=== PATIENT | male | born 1960 | race Caucasian/White ===

== ENCOUNTER 2018-06-05 01:25 | Inpatient (IN) | payer OTHER ==
[2018-06-05] VITALS (8 sets, daily range): BP systolic 116–156; BP diastolic 49–82
[~2018-06-05] VITALS: Ht 187.9 cm; Wt 120.8 kg
--- NOTE | ~2018-06-05 | EKG ---
[place], [place] ELECTROCARDIOGRAM REPORT NAME: XOCHILT LENNON UNIT #: [id number] ROOM: 516 DOCTOR: KIMBERLY DRAFT REPORT BIRTHDATE: [birth year] [facility] Test Date: 2018-06-05 Test Time: 01:35:32 Pat Name: XOCHILT LENNON Department: 5E Room: 516 Gender: M Principal Research Economist: Ever Elliott : 1960 Requested By: ODALYS ARRIETA Order Number: [id number] Reading MD: Kris Bennett MD Measurements Intervals [place] Rate: 93 P: 43 UT: 139 QRS: 46 QRSD: 99 T: 30 QT: 367 QTc: 457 Interpretive Statements Sinus rhythm Probable left atrial enlargement Borderline T wave abnormalities Baseline wander in lead(s) V5 Electronically Signed On 06-05-2018 16:29:19 PST by Kris Bennett MD CM:EKGRPT:ELECTROCARDIOGRAM REPORT 0135 1629 ODALYS EPSTEIN DRAFT REPORT ODALYS ARRIETA DO
[2018-06-05 01:47] LABS: BASO % 0.8 % (0.0-1.0); EOS # 0.1 10*3/uL (0.0-0.4); EOS % 1.8 % (1.0-4.0); HEMATOCRIT 32.1 % (42.0-52.0); HEMOGLOBIN 9.5 g/dl (14.0-18.0); LYMPH # 0.6 10*3/uL (1.3-4.4); LYMPH % 16.2 % (27.0-41.0); MEAN CELL VOLUME 84.5 fl (80.0-94.0); MEAN CORPUSCULAR HGB CONC 29.6 g/dl (33.0-37.0); MEAN PLATELET VOLUME 9.4 fl (9.6-12.3); MONO # 0.4 10*3/uL (0.1-1.0); MONO % 11.3 % (3.0-9.0); NEUT # 2.7 10*3/uL (2.3-7.9); NEUT % 69.1 % (47.0-73.0); PLATELET COUNT AUTOMATED 124 10*3/uL (130-400); RED CELL DISTRI WIDTH 19.1 % (0-14.5); WHITE BLOOD COUNT 3.9 10*3/uL (4.8-10.8)
[2018-06-05 02:18] LABS: TROPONIN I 0.148 ng/ml (<0.045)
[2018-06-05 02:57] LABS: ALBUMIN 3.1 gm/dl (3.1-4.5); ALKALINE PHOSPHATASE 133 U/L (45-117); BUN 6 mg/dl (7-24); CHLORIDE 107 mmol/L (98-107); CREATININE 0.96 mg/dL (0.70-1.30); SGOT/AST 81 IU/L (3-35); SGPT/ALT 41 U/L (12-78); SODIUM 141 mmol/L (136-145); TOTAL PROTEIN 8.8 gm/dL (6.4-8.2)
[2018-06-05 05:37] LABS: FREE T4 1.16 ng/dl (0.76-1.46)
[2018-06-05 05:43] LABS: THYROID STIM HORMONE (HS) 1.11 uIU/ml (0.358-4.75)
[2018-06-05 07:27] LABS: VITAMIN D, 25-HYDROXY 15.3 ng/mL (30-100)
[2018-06-05 08:03] LABS: URINE AMPHETAMINES < 1000 (1000ng/ml); URINE BARBITURATES < 200 (200ng/ml); URINE BENZODIAZEPINES < 200 (200ng/ml); URINE CANNABINOIDS (THC) > 50 (50ng/ml); URINE COCAINE < 300 (300ng/ml); URINE METHADONE < 300 (300ng/ml); URINE OPIATES < 300 (300ng/ml)
[2018-06-05 08:05] LABS: URINE PHENCYCLIDINE < 25 (25ng/ml)
== END 2018-06-05 18:59 | disposition home or self-care (01) | DRG 313 ==
LOC: ED 01:25 → EDHOLD 03:22 → 5E 03:22
PROVIDERS: Emergency Medicine; Internal Medicine; ADMIT Internal Medicine
DX: R07.9 Chest pain, unspecified (principal); R74.8 Abnormal levels of other serum enzymes; F17.210 Nicotine dependence, cigarettes, uncomplicated; S09.90XA Unspecified injury of head, initial encounter; S16.1XXA Strain of muscle, fascia and tendon at neck level, initial encounter; E66.9 Obesity, unspecified; D64.9 Anemia, unspecified; D69.6 Thrombocytopenia, unspecified; D72.810 Lymphocytopenia; R73.9 Hyperglycemia, unspecified; V89.2XXA Person injured in unspecified motor-vehicle accident, traffic, initial encounter; Y93.89 Activity, other specified; Y92.89 Other specified places as the place of occurrence of the external cause; Y99.8 Other external cause status; Z68.34 Body mass index [BMI] 34.0-34.9, adult

== ENCOUNTER 2018-07-01 22:40 | Inpatient (IN) | payer OTHER ==
--- NOTE | ~2018-07-01 | PR ---
[place], [place] PROGRESS NOTE NAME: XOCHILT LENNON UNIT #: [id number] ROOM: 528 DOCTOR: JANESSA HAMMOND MD BIRTHDATE: [birth year] DOS: 07/04/2018 CARDIOLOGY FOLLOWUP NOTE REASON FOR VISIT: Elevated troponin. SUBJECTIVE: The patient is feeling better. Denies any chest pain or shortness of breath. No palpitation, no dizziness, no orthopnea. No nausea or vomiting. No fever and chills. REVIEW OF SYSTEMS: Review of the 10 system negative except as mentioned above. PHYSICAL EXAMINATION: VITAL SIGNS: Blood pressure 109/50, pulse 70, respiration rate 17, weight 117 kilos, BMI 33. RHYTHM STRIPS: Patient in sinus rhythm. GENERAL: Comfort no acute distress. HEAD AND NECK: Neck supple, no distended neck veins, no audible carotid bruit. Tongue was moist and pharynx clear. CHEST: Symmetrical, nontender. LUNGS: Clear to auscultation bilaterally. HEART: Regular rhythm, no S3. Grade 1/6 systolic murmur. ABDOMEN: Benign, nontender. Bowel sounds normal. EXTREMITIES: Showed trace edema. Distal pulses palpable. SKIN: Warm and dry. No cyanosis, no clubbing. RECTAL: Deferred. NEUROLOGIC: Deferred. PSYCHIATRIC: The patient is alert, oriented with good mood and affect. MEDICATIONS, ALLERGIES, AND LABORATORIES: Reviewed. IMPRESSION: 1. Borderline elevation of troponin due to demand ischemia from severe anemia. 2. Severe anemia due to upper gastrointestinal bleed. 3. Upper gastrointestinal bleed. 4. Tobacco abuse. 5. Non-morbid obesity. 6. Peptic ulcer disease. RECOMMENDATIONS: 1. Blood pressure and heart rate are stable. 2. Continue current medications. 3. The patient is anticipating upper endoscopy earlier part of next week and treatment of his esophageal varices. He will need Lexiscan stress test prior to discharge. 4. His 2D echo was unremarkable. 5. No family at bedside at the time of examination. [place], [place] PROGRESS NOTE NAME: XOCHILT LENNON UNIT #: [id number] ROOM: 528 DOCTOR: JANESSA HAMMOND MD BIRTHDATE: [birth year] JANESSA HAMMOND MD CM:ERIS 55 [id number] JANESSA HAMMOND MD 08/18/18 0808 interface
--- NOTE | ~2018-07-01 | PR ---
[place], [place] PROGRESS NOTE NAME: XOCHILT LENNON UNIT #: [id number] ROOM: 528 DOCTOR: STEPHANY WARNER,JANESSA BIRTHDATE: [birth year] DOS: 07/06/2018 CARDIOLOGY PROGRESS NOTE REASON FOR VISIT: Elevated troponin. SUBJECTIVE: The patient is feeling better. Denies any chest pain or shortness of breath. No palpitations, no dizziness. No hemoptysis. He is anticipating to go for an upper endoscopy today. No PND, no orthopnea, no palpitations. REVIEW OF SYSTEMS: Review of the 10 systems negative except as mentioned above. PHYSICAL EXAMINATION: VITAL SIGNS: Blood pressure 130/46, pulse 85, respiratory rate 20. Weight 117 kilos, BMI 33. RHYTHM STRIPS: The patient is in sinus rhythm. GENERAL: Alert, comfortable, in no acute distress. HEAD AND NECK: Pupils are round and equal. No jaundice. Tongue was moist. Pharynx clear. Neck is supple, no distended neck veins, no carotid bruit. CHEST: Symmetrical, nontender. LUNGS: Clear to auscultation bilaterally. HEART: Regular rhythm, no S3, no palpable thrills. ABDOMEN: Benign, nontender. Bowel sounds normal. EXTREMITIES: Showed trace edema. Distal pulses palpable. SKIN: Warm and dry. No cyanosis, no clubbing. RECTAL: Deferred. GENITOURINARY: Deferred. NEUROLOGIC: The patient is alert, oriented with good mood and affect. MEDICATIONS AND LABS: Reviewed. IMPRESSION: 1. Borderline elevation of troponin due to severe anemia with demand ischemia. 2. Severe anemia due to acute gastrointestinal bleed. 3. Peptic ulcer disease. 4. Mild hypokalemia. 5. Non-morbid obesity. 6. Tobacco use. RECOMMENDATIONS: 1. Continue current medication. 2. We will supplement his potassium after the upper endoscopy and we will give 40 mEq of potassium chloride. 3. Monitor the heart rate, blood pressure, and hemoglobin. 4. The patient counseled to quit smoking. 5. After his upper endoscopy and his hemoglobin stable, he will need a Lexiscan stress test prior to discharge. 6. Risk factor modification to quit smoking and also for diet, exercise, weight loss as tolerated was discussed. 7. No family at bedside at the time of examination. [place], [place] PROGRESS NOTE NAME: XOCHILT LENNON UNIT #: [id number] ROOM: 528 DOCTOR: JANESSA HAMMOND MD BIRTHDATE: [birth year] JANESSA HAMMOND MD CM:PNJACOB [id number] JANESSA HAMMOND MD 07/07/18 1500 interface
--- NOTE | ~2018-07-01 | O ---
[place], [place] OPERATIVE NOTE NAME: XOCHILT LENNON UNIT #: [id number] ROOM: 528 DOCTOR: MARII GASCA MD BIRTHDATE: [birth year] DOS: 07/06/2018 GASTROENDOSCOPIC REPORT INDICATIONS: The patient has presented with a cirrhotic liver, esophageal varicosity, portal hypertension, anemia, GI bleed, undergoing investigation and therapeutics. PROCEDURE: Today's procedure part of investigation and therapy is panendoscopy plus esophageal varicosity band ligation. PREMEDICATION: Propofol. SCOPE: Olympus forward-viewing gastroscope Q10 video. REPORT: After putting the patient in left lateral position and application of lubricant to the scope, the scope was introduced. Thereafter, under direct visualization, advanced through the length of esophagus without difficulty. Esophagus, cervical, thoracic distally carefully examined and 2-3+ esophageal band of varicosity was noticed at 12 o'clock, 2 cm above the esophagogastric junction. This was targeted and ligated triple bands. Gastric pouch was entered. Gastritis seen. Duodenal bulb, second and third part within normal limit. The patient extubated, tolerated procedure well. Photographic series obtained. IMPRESSION: Esophageal varicosities status post triple band ligation at 1 site. PLAN AND DISCUSSION: Ice cold liquid diet today, soft tomorrow, and advancement, supportive management. Thank you very much indeed for your kind referral. MARII GASCA MD CM:OPRECORD:OPERATIVE NOTE 1324 1410 MARII GASCA MD 07/06/18 1411 interface
--- NOTE | ~2018-07-01 | EKG ---
[place], [place] ELECTROCARDIOGRAM REPORT NAME: XOCHILT LENNON UNIT #: [id number] ROOM: [facility] DOCTOR: KIMBERLY DRAFT REPORT BIRTHDATE: [birth year] [facility] Test Date: 2018-07-02 Test Time: 02:40:37 Pat Name: XOCHILT LENNON Department: Room: [facility] Gender: M Research Scholar: 51 : 1960 Requested By: TANK LIMON Order Number: [id number] Reading MD: Kris Bennett MD Measurements Intervals [place] Rate: 111 P: 30 OR: 125 QRS: 41 QRSD: 90 T: QT: 337 QTc: 458 Interpretive Statements Sinus tachycardia Repol abnrm, severe global ischemia (LM/MVD) Compared to earlier ECG this date No significant change Electronically Signed On 07-02-2018 18:14:12 PST by Kris Bennett MD CM:EKGRPT:ELECTROCARDIOGRAM REPORT 0240 1814 TANK LIMON MD EPIPHANY DRAFT REPORT TANK LIMON MD
--- NOTE | ~2018-07-01 | EKG ---
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
--- NOTE | ~2018-07-01 | EKG ---
[place], [place] ELECTROCARDIOGRAM REPORT NAME: XOCHILT LENNON UNIT #: [id number] ROOM: [facility] DOCTOR: KIMBERLY DRAFT REPORT BIRTHDATE: [birth year] [facility] Test Date: 2018-07-02 Test Time: 00:19:49 Pat Name: XOCHILT LENNON Department: Room: 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
--- NOTE | ~2018-07-01 | O ---
[place], [place] OPERATIVE NOTE NAME: XOCHILT LENNON UNIT #: [id number] ROOM: 528 DOCTOR: MARII GASCA MD BIRTHDATE: [birth year] DOS: 07/03/2018 INDICATION FOR PROCEDURE: A 57-year-old patient who presented with chief complaint of GI bleed. The patient has presented with hemoglobin of 4, status post multipack cell transfusion observation in ICU. PROCEDURE: Today's procedure part of investigation is panendoscopy. PREMEDICATION: Propofol. SCOPE: Olympus forward-viewing gastroscope Q10 video. REPORT: After putting the patient in left lateral position and application of lubricant to the scope, the scope was introduced. Therefore, under direct visualization, advanced through the length of esophagus without difficulty. A 2-3+ esophageal varicosities isolated were noticed. Gastric pouch was entered. Gastritis seen. Multiple small antral ulceration secondary to nonsteroidal anti-inflammatory was noticed. Duodenal bulb, second and third part within normal limits. The patient was gradually extubated after antral biopsy. The patient tolerated the procedure well. IMPRESSION: Esophageal varicosities gastritis, multi small antral ulcers. PLAN AND DISCUSSION: The patient requires to be under detox at least to be away from alcohol to remove the effect of the alcohol and nonsteroidal anti-inflammatory and also in the near future to have EGD, esophageal banding done. Meanwhile, he needs to be on PPI therapy as well as Inderal therapy at least started at 10 mg b.i.d. and if his blood pressure systemically agrees, to increase it to 20 mg b.i.d. or nadolol C[place]ard as a substitute. We will make arrangements for future esophageal band ligation once the issues on hand has been addressed in the next few days. MARII GASCA MD CM:OPRECORD:OPERATIVE NOTE 1522 1612 MARII GASCA MD 07/09/18 0811 interface
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
--- NOTE | ~2018-07-01 | EKG ---
[place], [place] ELECTROCARDIOGRAM REPORT NAME: XOCHILT LENNON UNIT #: [id number] ROOM: [facility] DOCTOR: KIMBERLY DRAFT REPORT BIRTHDATE: [birth year] [facility] Test Date: 2018-07-01 Test Time: 22:52:28 Pat Name: XOCHILT LENNON Department: Room: [facility] Gender: M Hospital Nurse: 51 : 1960 Requested By: TANK LIMON Order Number: [id number] Reading MD: Kris Bennett MD Measurements Intervals [place] Rate: 116 P: 21 [place]: 116 QRS: 46 QRSD: 86 T: 138 QT: 346 QTc: 481 Interpretive Statements Sinus tachycardia Repol abnrm, severe global ischemia (LM/MVD) Compared to ECG 06/05/2018 01:35:[address] depression consistent with ischemia now present Sinus rhythm no longer present T-wave abnormality no longer present Electronically Signed On 07-02-2018 3:59:10 PST by Kris Bennett MD CM:EKGRPT:ELECTROCARDIOGRAM REPORT [id number] 0359 TANK HARRIS DRAFT REPORT TANK LIMON MD
[2018-07-01 22:45] VITALS: BP 96/44
--- NOTE | 2018-07-01 23:00 | NUR ---
VERBAL CONSENT GIVEN FOR BLOOD TRANSFUSION TO DR. GIBSON. THIS RN WITNESSED.
[2018-07-01 23:19] LABS: MEAN CELL VOLUME 85.3 fl (80.0-94.0); MEAN CORPUSCULAR HGB 23.9 pg (27.0-31.0); MEAN PLATELET VOLUME 10.9 fl (9.6-12.3); NUCLEATED RED BLOOD CELL 0.1 10*3/uL (0.0-0.0); NUCLEATED RED BLOOD CELL 0.3 % (0.0-0.0); PLATELET COUNT AUTOMATED 204 10*3/uL (130-400); RED BLOOD COUNT 1.84 10*6/uL (4.50-5.90); RED CELL DISTRI WIDTH 22.7 % (0-14.5); WHITE BLOOD COUNT 16.6 10*3/uL (4.8-10.8)
[2018-07-01 23:26] LABS: HEMOGLOBIN 4.4 g/dl (14.0-18.0)
[2018-07-01 23:28] LABS: HEMATOCRIT 15.7 % (42.0-52.0)
--- NOTE | 2018-07-01 23:29 | NUR ---
TOOK REPORT FROM LAB WITH CRITICAL H&H 4.4.7. NOTIFIED DR. GIBSON, AND ANAY RANDLE
[2018-07-01 23:34] LABS: ACT PARTIAL THROMBO TIME 25.1 SECONDS (20.8-31.5); INTERNATIONAL NORM RATIO 1.8 (2.0-3.5)
[2018-07-01 23:37] VITALS: BP 116/40
[2018-07-01 23:39] LABS: BASOPHILS 1 % (0-1); PLATELET SUFFICIENCY NORMAL (NORMAL); POLYCHROMASIA MODERATE; TOTAL CELLS COUNTED 100 #CELLS
[2018-07-01 23:51] LABS: ALBUMIN 2.3 gm/dl (3.1-4.5); CREATININE 1.74 mg/dL (0.70-1.30); POTASSIUM 4.8 mmol/L (3.5-5.1); TOTAL PROTEIN 6.3 gm/dL (6.4-8.2)
[2018-07-01 23:53] LABS: TROPONIN I 0.91 ng/ml (<0.045)
[2018-07-02] VITALS (33 sets, daily range): BP systolic 104–124; BP diastolic 40–60
--- NOTE | 2018-07-02 01:00 | NUR ---
DR. ACKERMAN ANSWERING SERVICE NOTIFIED. DR. GASCA WAS NOTIFIED IN ER BY DR. JIMENEZ.
--- NOTE | 2018-07-02 01:10 | NUR ---
A 57, admitted to ICCU, under the services of KELSEY Cao MD with a diagnosis of AC UPPER GI BLEED. Chief complaint is VOMITING BLOOD, BLOODY STOOLS, AND CHEST PRESSURE. Patient arrived via stretcher from ER. Monitor applied. Initial assessment completed. Vital signs taken and recorded. KELSEY CAO MD notified of admission to the unit. Orders received. See assessment for past medical history, medications and allergies. Patient and/or family oriented to unit. [facility]U visitation policy reviewed. Clothing/patient valuable form completed. JAJA GOFF
[2018-07-02 05:22] LABS: ALBUMIN 2.1 gm/dl (3.1-4.5); BUN 44 mg/dl (7-24); CHLORIDE 105 mmol/L (98-107); POTASSIUM 4.2 mmol/L (3.5-5.1); SODIUM 140 mmol/L (136-145)
[2018-07-02 05:30] LABS: ALKALINE PHOSPHATASE 108 U/L (45-117); CHOLESTEROL 55 mg/dL (<200); CREATININE 1.29 mg/dL (0.70-1.30); FREE T4 1.04 ng/dl (0.76-1.46); HDL CHOLESTEROL 22 mg/dl (40-60); LDL CHOLESTEROL 17 mg/dL (9-159); PHOSPHOROUS 4.2 mg/dL (2.5-4.9); SGOT/AST 52 IU/L (3-35); SGPT/ALT 33 U/L (12-78); THYROID STIM HORMONE (HS) 0.597 uIU/ml (0.358-4.75); TOTAL PROTEIN 5.7 gm/dL (6.4-8.2); TRIGLYCERIDES 79 mg/dl (<150); VLDL CHOLESTEROL 16 mg/dL (6-40)
--- NOTE | 2018-07-02 06:54 | NUR ---
DR. ACKERMAN AWARE OF CONSULT NO NEW ORDERS.
[2018-07-02] MEDS ORDERED: Motrin,Rufen400 MG PO (07:09)
[2018-07-02 07:42] LABS: VITAMIN D, 25-HYDROXY 15.9 ng/mL (30-100)
--- NOTE | 2018-07-02 08:25 | NUR ---
DR ACKERMAN IN WITH PATIENT AT THIS TIME
--- NOTE | 2018-07-02 08:45 | NUR ---
SHIFT CHART CHECK COMPLETED. 24HR CHART CHECK COMPLETED AT THIS TIME.
[2018-07-02 08:58] LABS: HEMATOCRIT 19.6 % (42.0-52.0); MEAN CELL VOLUME 84.8 fl (80.0-94.0); MEAN CORPUSCULAR HGB CONC 30.6 g/dl (33.0-37.0); MEAN PLATELET VOLUME 11.1 fl (9.6-12.3); NUCLEATED RED BLOOD CELL 0.1 10*3/uL (0.0-0.0); NUCLEATED RED BLOOD CELL 0.5 % (0.0-0.0); PLATELET COUNT AUTOMATED 162 10*3/uL (130-400); RED BLOOD COUNT 2.31 10*6/uL (4.50-5.90); RED CELL DISTRI WIDTH 20.2 % (0-14.5); WHITE BLOOD COUNT 16.7 10*3/uL (4.8-10.8)
--- NOTE | 2018-07-02 08:59 | NUR ---
Shift chart check completed.24 HR chart check completed.
--- NOTE | 2018-07-02 09:00 | NUR ---
Photographic Plate Maker in to talk to patient. Patient states lives at home with his girlfriend. There are 2 steps in the home. Physician: Dr. Hughes but hasn't seen him since 2004 Pharmacy: [facility] Home health services: none Patient's level of ADLs: INDEPENDENT Patient has working utilities: yes DME: none Follow-up physician's appointment after d/c: he prefers to make his own follow up appt after discharge Does patient want to access PORTAL?: no Discharge plan discussed with patient. He lives at home with his girlfriend. He is independent in his ADLs and ambulation. Discussed home health care services and he denies any home needs at this time. When medically stable he will be discharged to home. [facility]
[2018-07-02 09:34] LABS: ACT PARTIAL THROMBO TIME 24.9 SECONDS (20.8-31.5); INTERNATIONAL NORM RATIO 1.6 (2.0-3.5)
[2018-07-02 10:06] LABS: PLATELET SUFFICIENCY NORMAL (NORMAL); POLYCHROMASIA MODERATE; TOTAL CELLS COUNTED 100 #CELLS
--- NOTE | 2018-07-02 10:50 | NUR ---
BLOOD TRANFUSION #3 STARTED AT THIS TIME. PATIENT MADE AWARE OF SIGNS OF TRANFUSION REACTION THAT NEED TO BE REPORTED TO RN. PATIENT VERBALIZED UNDERSTANDING. PATIENT TOLERATING WELL AT THIS TIME, NO SIGNS OR SYMPTOMS OF TRANFUSION REACTION. BASELINE VITALS WERE OBTAINED PRIOR TO INITIATION OF BLOOD PRODUCT. RN WILL CLOSELY MONITOR THIS PATIENT
--- NOTE | 2018-07-02 11:20 | NUR ---
TRANSFUSION WITHOUT ANY IMMEDIATE SIGNS OF REACTION. INFUSION RATE INCREASED TO 150/HR. ON QUESTIONING PATIENT STATES "ABOUT 8" MOTRIN A MONTH. SANDOSTATIN DRIP CONTINUES.
--- NOTE | 2018-07-02 14:12 | NUR ---
Patient identified by arm band. Vital signs recorded. Blood unit number [id number] verified by myself and Dr Gao. I.V. site satisfactory. Unit#4 started at a KVO rate with Normal Saline. ZI LAM L
--- NOTE | 2018-07-02 14:32 | NUR ---
NO APPARENT TRANSFUSION REACTION IN THE FIRST 30MINUTES. INFUSION RATE INCREASED TO 150/HR. ULTRASOUND HERE TO DO LIVER ULTRASOUND.
--- NOTE | 2018-07-02 16:05 | NUR ---
TRANSFUSION CONTINUES WITHOUT SIGNS OF REACTION. SANDOSTATIN CONTINUES AT 25MCG/HR. PT REMAINS NPO. HE MOSTLY SLEEPS.
--- NOTE | 2018-07-02 17:00 | NUR ---
TRANSFUSION COMPLETE AT 1652.
[2018-07-02 17:39] LABS: HEMATOCRIT 22.9 % (42.0-52.0); HEMOGLOBIN 7.4 g/dl (14.0-18.0)
[2018-07-02 17:56] LABS: ALBUMIN 2.2 gm/dl (3.1-4.5); ALKALINE PHOSPHATASE 106 U/L (45-117); BUN 42 mg/dl (7-24); CHLORIDE 107 mmol/L (98-107); CREATININE 1.14 mg/dL (0.70-1.30); POTASSIUM 3.8 mmol/L (3.5-5.1); SGOT/AST 112 IU/L (3-35); SGPT/ALT 45 U/L (12-78); SODIUM 143 mmol/L (136-145); TOTAL PROTEIN 5.7 gm/dL (6.4-8.2)
--- NOTE | 2018-07-02 19:02 | NUR ---
Patient identified by arm band. Vital signs recorded. Blood unit number [id number] verified by 2 R.N.'s, myself and Virgie Schafer. I.V. site satisfactory. Unit #5 started at a KVO rate with Normal Saline. ZI LAM
--- NOTE | 2018-07-02 19:38 | NUR ---
NO APPARENT TRANSFUSION REACTION AFTER 30 MINUTES AT KVO RATE AND CLOSE OBSERVATION. INFUSION RATE INCREASED TO 150/HR.
--- NOTE | 2018-07-02 21:09 | NUR ---
TRANSFUSION CONTINUES WITHOUT SIGNS OF REACTION. EXPLANATIONS TO HIM ABOUT POSSIBLE ENDOSCOPY TOMORROW. OFFERED A HIBICLENS BATH TONIGHT OR IN AM, PT CHOSE AM.
--- NOTE | 2018-07-02 22:23 | NUR ---
Patient identified by arm band. Vital signs recorded. Blood unit number [id number] verified by 2 R.N.'s, myself and Raisa Barraza. I.V. site satisfactory. Unit#6 started at a KVO rate with Normal Saline. ZI LAM
--- NOTE | 2018-07-02 22:42 | NUR ---
NO APPARENT TRANSFUSION REACTION, INFUSION RATE INCREASED TO 150/HR.
[2018-07-03] VITALS (10 sets, daily range): BP systolic 110–144; BP diastolic 46–67
[2018-07-03 02:06] LABS: HEMATOCRIT 27.1 % (42.0-52.0); HEMOGLOBIN 8.8 g/dl (14.0-18.0)
[2018-07-03 02:07] LABS: HEMATOCRIT 27.7 % (42.0-52.0); HEMOGLOBIN 8.7 g/dl (14.0-18.0); MEAN CELL VOLUME 85.5 fl (80.0-94.0); MEAN CORPUSCULAR HGB 26.9 pg (27.0-31.0); MEAN CORPUSCULAR HGB CONC 31.4 g/dl (33.0-37.0); MEAN PLATELET VOLUME 10.2 fl (9.6-12.3); NUCLEATED RED BLOOD CELL 0.1 10*3/uL (0.0-0.0); NUCLEATED RED BLOOD CELL 0.6 % (0.0-0.0); RED BLOOD COUNT 3.24 10*6/uL (4.50-5.90); WHITE BLOOD COUNT 13.9 10*3/uL (4.8-10.8)
[2018-07-03 02:12] LABS: PLATELET COUNT AUTOMATED 105 10*3/uL (130-400)
[2018-07-03 02:22] LABS: ALBUMIN 2.1 gm/dl (3.1-4.5); ALKALINE PHOSPHATASE 103 U/L (45-117); CHLORIDE 108 mmol/L (98-107); POTASSIUM 3.8 mmol/L (3.5-5.1); SGOT/AST 135 IU/L (3-35); SGPT/ALT 59 U/L (12-78); SODIUM 144 mmol/L (136-145); TOTAL PROTEIN 5.7 gm/dL (6.4-8.2)
[2018-07-03 02:28] LABS: BUN 37 mg/dl (7-24)
[2018-07-03 02:42] LABS: PLATELET SUFFICIENCY LOW (NORMAL); TOTAL CELLS COUNTED 100 #CELLS
[2018-07-03 02:43] LABS: MICROCYTOSIS SLIGHT; POLYCHROMASIA SLIGHT
[2018-07-03 06:59] LABS: HEMATOCRIT 28.9 % (42.0-52.0); HEMOGLOBIN 9.1 g/dl (14.0-18.0); MEAN CELL VOLUME 85.8 fl (80.0-94.0); MEAN CORPUSCULAR HGB CONC 31.5 g/dl (33.0-37.0); MEAN PLATELET VOLUME 10.4 fl (9.6-12.3); NUCLEATED RED BLOOD CELL 0.1 10*3/uL (0.0-0.0); NUCLEATED RED BLOOD CELL 0.6 % (0.0-0.0); PLATELET COUNT AUTOMATED 108 10*3/uL (130-400); RED BLOOD COUNT 3.37 10*6/uL (4.50-5.90); RED CELL DISTRI WIDTH 19.5 % (0-14.5); WHITE BLOOD COUNT 13.6 10*3/uL (4.8-10.8)
[2018-07-03 07:14] LABS: ALBUMIN 2.3 gm/dl (3.1-4.5); ALKALINE PHOSPHATASE 109 U/L (45-117); BUN 38 mg/dl (7-24); CHLORIDE 108 mmol/L (98-107); CREATININE 1.17 mg/dL (0.70-1.30); POTASSIUM 3.8 mmol/L (3.5-5.1); SGOT/AST 132 IU/L (3-35); SGPT/ALT 65 U/L (12-78); SODIUM 142 mmol/L (136-145); TOTAL PROTEIN 6.1 gm/dL (6.4-8.2)
[2018-07-03 07:45] LABS: BASOPHILS 1 % (0-1); TOTAL CELLS COUNTED 100 #CELLS
[2018-07-03 07:46] LABS: BURR CELLS FEW; PLATELET SUFFICIENCY LOW (NORMAL); POLYCHROMASIA SLIGHT
--- NOTE | 2018-07-03 09:00 | NUR ---
Meeting/Event Planner in to see patient. No new needs or request at this time. He denies any home needs. When medically stable he will be discharged to home.
[2018-07-03 09:27] LABS: INTERNATIONAL NORM RATIO 1.5 (2.0-3.5)
--- NOTE | 2018-07-03 15:50 | NUR ---
PT RETURNED FROMSURGERY VIA BED. VSS. PT [id number]. PT REQUESTING TO EAT.
--- NOTE | 2018-07-03 17:15 | NUR ---
POST OP ORDERS RECEIVED EARLIER FROM DR GASCA. SPOKE WITH DR HAMMOND R/T INDERAL ORDER AND HE STATED IT WAS OK TO ORDER.
[2018-07-03 18:31] LABS: HEMATOCRIT 28.6 % (42.0-52.0); HEMOGLOBIN 8.9 g/dl (14.0-18.0)
--- NOTE | 2018-07-03 19:11 | NUR ---
CHART CHECK COMPLETE.
--- NOTE | 2018-07-03 19:53 | NUR ---
ASSESSMENT COMPLETE. PT WITHOUT COMPLAINTS. VSS.
[2018-07-04] VITALS: BP 120/50
[2018-07-04 04:00] VITALS: BP 109/48
[2018-07-04 04:33] LABS: BASO % 0.3 % (0.0-1.0); EOS # 0.2 10*3/uL (0.0-0.4); EOS % 1.8 % (1.0-4.0); HEMATOCRIT 27.8 % (42.0-52.0); HEMOGLOBIN 8.2 g/dl (14.0-18.0); LYMPH % 16.7 % (27.0-41.0); MEAN CELL VOLUME 88.8 fl (80.0-94.0); MEAN CORPUSCULAR HGB 26.2 pg (27.0-31.0); MEAN CORPUSCULAR HGB CONC 29.5 g/dl (33.0-37.0); MEAN PLATELET VOLUME 10.4 fl (9.6-12.3); MONO # 1.4 10*3/uL (0.1-1.0); MONO % 12.2 % (3.0-9.0); NEUT % 68.6 % (47.0-73.0); NUCLEATED RED BLOOD CELL 0.3 % (0.0-0.0); PLATELET COUNT AUTOMATED 99 10*3/uL (130-400); RED BLOOD COUNT 3.13 10*6/uL (4.50-5.90); RED CELL DISTRI WIDTH 19.7 % (0-14.5); WHITE BLOOD COUNT 11.7 10*3/uL (4.8-10.8)
[2018-07-04 04:42] LABS: INTERNATIONAL NORM RATIO 1.5 (2.0-3.5)
[2018-07-04 05:02] LABS: ALKALINE PHOSPHATASE 97 U/L (45-117); CHLORIDE 107 mmol/L (98-107); CREATININE 0.94 mg/dL (0.70-1.30); PHOSPHOROUS 2.5 mg/dL (2.5-4.9); POTASSIUM 3.5 mmol/L (3.5-5.1); SGOT/AST 86 IU/L (3-35); SGPT/ALT 59 U/L (12-78); SODIUM 140 mmol/L (136-145); TOTAL PROTEIN 5.5 gm/dL (6.4-8.2)
[2018-07-04 05:06] LABS: BUN 27 mg/dl (7-24)
[2018-07-04 07:07] LABS: HEPATITIS B SURFACE AG Negative (Negative); HEPATITIS C VIRUS ANTIBODY 0.2 s/co (0.0-0.9)
[2018-07-04 08:00] VITALS: BP 115/55
--- NOTE | 2018-07-04 08:09 | NUR ---
PATIENT MEDICATED WITH TYLENOL PER DRS ORDERS FOR COMPLAINTS OF HEADACHE. RN WILL MONITOR FOR EFFECTIVENESS
--- NOTE | 2018-07-04 08:32 | NUR ---
Shift chart check completed.24 HR chart check completed.
--- NOTE | 2018-07-04 09:15 | NUR ---
PATIENT STATES THAT TYLENOL HAS REDUCED HEADACHE PAIN. RN WILL CONTINUE TO MONITOR
[2018-07-04 11:44] VITALS: BP 109/50
--- NOTE | 2018-07-04 11:45 | NUR ---
PATIENT SITTING UP IN BED EATING LUNCH AT THIST ANGLE. DENIES ANY COMPLAINTS CURRENTLY. TOLERATING DIET WELL. CALL LIGHT WITHIN REACH. RN WILL CONTINUE TO MONITORN
[2018-07-04 14:37] LABS: IRON 12 ug/dL (65-175); TOTAL IRON BINDING CAPACITY 358 ug/dl (250-450)
[2018-07-04 16:00] VITALS: BP 108/53
--- NOTE | 2018-07-04 17:55 | NUR ---
PT HAS HAD SCABBED AREAS TO HIS LEFT KNEE AND THE INNER ASPECT OF HIS LEFT ANKLE. THEY HAVE BEEN HERE SINCE ADMISSION, AND PT STATES OCCURRED PRIOR TO ADMISSION. TODAY, DURING HIS SELF AM CARE, HE AGGRESSIVELY SCRUBBED THE SCABS OFF BOTH AREAS. THERE WAS SOME BLOODY DRAINAGE AROUND THE KNEE AND A SHINY AREA TO THE ANKLE WOUND. PHOTOS TAKEN NOW THAT THE SCABS PARTIALLY OFF.
--- NOTE | 2018-07-04 18:46 | NUR ---
DR KAPADIA NOTIFIED OF THE WOUNDS OF HIS LEFT KNEE AND LEFT ANKLE.
[2018-07-04 20:00] VITALS: BP 112/66
[2018-07-05] VITALS: BP 134/58
[2018-07-05 04:00] VITALS: BP 123/59
[2018-07-05 05:27] LABS: ALKALINE PHOSPHATASE 109 U/L (45-117); BUN 23 mg/dl (7-24); CHLORIDE 108 mmol/L (98-107); CREATININE 1.01 mg/dL (0.70-1.30); POTASSIUM 3.2 mmol/L (3.5-5.1); SGOT/AST 59 IU/L (3-35); SGPT/ALT 49 U/L (12-78); SODIUM 140 mmol/L (136-145); TOTAL PROTEIN 5.7 gm/dL (6.4-8.2)
[2018-07-05 06:11] LABS: BASO % 0.5 % (0.0-1.0); EOS # 0.3 10*3/uL (0.0-0.4); EOS % 3.6 % (1.0-4.0); HEMATOCRIT 27.4 % (42.0-52.0); HEMOGLOBIN 8.5 g/dl (14.0-18.0); LYMPH # 1.4 10*3/uL (1.3-4.4); LYMPH % 18.6 % (27.0-41.0); MEAN CELL VOLUME 89.5 fl (80.0-94.0); MEAN CORPUSCULAR HGB 27.8 pg (27.0-31.0); MEAN PLATELET VOLUME 10.8 fl (9.6-12.3); MONO # 1.1 10*3/uL (0.1-1.0); MONO % 15.4 % (3.0-9.0); NEUT # 4.5 10*3/uL (2.3-7.9); NEUT % 61.5 % (47.0-73.0); NUCLEATED RED BLOOD CELL 0.3 % (0.0-0.0); PLATELET COUNT AUTOMATED 100 10*3/uL (130-400); RED BLOOD COUNT 3.06 10*6/uL (4.50-5.90); RED CELL DISTRI WIDTH 20.2 % (0-14.5); WHITE BLOOD COUNT 7.4 10*3/uL (4.8-10.8)
--- NOTE | 2018-07-05 07:07 | NUR ---
Shift chart check completed.24 HR chart check completed.
[2018-07-05 07:59] VITALS: BP 119/59
[2018-07-05 12:00] VITALS: BP 121/59
--- NOTE | 2018-07-05 12:02 | NUR ---
DR TATUM HAS VISITED. IV FLUIDS D/C. PT MAY BE MOVED TO TELEMETRY.
--- NOTE | 2018-07-05 12:41 | NUR ---
REPORT CALLED TO SEKOU RANDLE ON 5TH FLOOR. OPPORTUNITY FOR QUESTIONS PROVIDED.
--- NOTE | 2018-07-05 13:01 | NUR ---
TRANSFERRED IN STABLE CONDITION, VIA W/C, WITH ALL OF HIS BELONGINGS. REPORT WAS GIVEN TO SEKOU Carrasco
--- NOTE | 2018-07-05 13:12 | NUR ---
PT RESTING IN BED, NO DISTRESS NOTED. WILL MONITOR
[2018-07-05 16:00] VITALS: BP 126/79
[2018-07-05 20:00] VITALS: BP 115/52
[2018-07-06] VITALS (9 sets, daily range): BP systolic 112–143; BP diastolic 46–68
[2018-07-06 06:29] LABS: BASO % 0.6 % (0.0-1.0); EOS # 0.2 10*3/uL (0.0-0.4); EOS % 2.8 % (1.0-4.0); HEMATOCRIT 27.8 % (42.0-52.0); HEMOGLOBIN 8.3 g/dl (14.0-18.0); LYMPH # 1.2 10*3/uL (1.3-4.4); LYMPH % 16.9 % (27.0-41.0); MEAN CELL VOLUME 88.5 fl (80.0-94.0); MEAN CORPUSCULAR HGB 26.4 pg (27.0-31.0); MEAN CORPUSCULAR HGB CONC 29.9 g/dl (33.0-37.0); MONO # 1.2 10*3/uL (0.1-1.0); MONO % 17.2 % (3.0-9.0); NEUT # 4.4 10*3/uL (2.3-7.9); NEUT % 62.2 % (47.0-73.0); PLATELET COUNT AUTOMATED 107 10*3/uL (130-400); RED BLOOD COUNT 3.14 10*6/uL (4.50-5.90); RED CELL DISTRI WIDTH 19.9 % (0-14.5); WHITE BLOOD COUNT 7.1 10*3/uL (4.8-10.8)
[2018-07-06 06:57] LABS: ALBUMIN 2.1 gm/dl (3.1-4.5); BUN 19 mg/dl (7-24); CHLORIDE 108 mmol/L (98-107); CREATININE 0.95 mg/dL (0.70-1.30); POTASSIUM 3.4 mmol/L (3.5-5.1); SGOT/AST 50 IU/L (3-35); SGPT/ALT 44 U/L (12-78); SODIUM 138 mmol/L (136-145)
[2018-07-06 06:59] LABS: ALKALINE PHOSPHATASE 121 U/L (45-117); TOTAL PROTEIN 5.7 gm/dL (6.4-8.2)
--- NOTE | 2018-07-06 07:07 | NUR ---
XOCHILT LENNON [id number] Please refer to the physician's history and physical for past medical history, comorbid conditions, and allergies. Diagnosis: AC UPPER GI BLEED Anshu Score: 19,LOW OR NO RISK WOUND DESCRIPTIONS: Location of the wound: left inner aspect of ankle Thickness: Full Size: 2.1cm x 2.3cm x 0.1cm Tunneling: none Undermining: none Sinus Tract: none Presence of Exudate: Purulent Amount: Light Color: Brown, yellow, red Odor: Foul Periwound Skin Appearance: Erythema Wound edges: approximated Pain (associated with wound): none at time of assessment How does patient state this happened? pt stated he slipped on ice and hit a propane tank. Patient is requesting to see wound care for this area. Location of the wound: left knee Type of wound: scab Size: 2.1cm x 0.8cm x <0.1cm Tunneling: none Undermining: none Sinus Tract: none Presence of Exudate: none Amount: None Color: Red Odor: None Periwound Skin Appearance: Normal Wound edges: closed Pain (associated with wound): none at time of assessment How does patient state this happened? pt stated he fell last and this area occured during his fall Surface the patient is resting on: Isoflex SKIN PREVENTION RECOMMENDATION: 1. Pressure redistribution support surface as appropriate 2. Elevate heels 3. Remove boots/TEDS every shift and reapply 4. Head of bed 30 degrees as tolerated 5. Assess nutrition and hydration 6. Manage moisture 7. Avoid the use of containment devices while in bed 8. Use absorptive products on surfaces limit layers of linens on bed 9. Turn and reposition every 1-2 hours in bed and every 1 hour in chair as tolerated 10. Weight shifts every 15 minutes while up in chair 11. Offloading with pillows or device to keep heels elevated off bed 12. Monitor skin at least every shift 13. Inspect under medical devices twice a day WOUND TREATMENT RECOMMENDATIONS: Venous and arterial studies to BLE's due to wound located on the left ankle. Consult Karena MATHUR-BC for possible debridement of Left inner aspect of ankle. Full thickness guidelines: Cleanse left inner aspect of ankle with nss and apply sureprep around the wound therahoney to wound bed and cover with optifoam gentle. Clarify stage 2 guidelines:Cleanse left knee with nss and apply sureprep to left knee allow time to dry the cover with optifoam gentle. Patient is requesting to follow up in the wound care center upon discharge.
--- NOTE | 2018-07-06 08:30 | NUR ---
CALLED DR. GASCA TO CLARIFY WHEN PATIENT WAS TO HAVE REPEAT EGD FOR POSSIBLE ESOPHAGEAL VARICIES. PER DR. MATHEW KEEP PATIENT NPO, ORDER PLATELETS TO BE ON HOLD FOR PROCEDURE. PSSIBLE EGD TODAY. PT MADE AWARE
--- NOTE | 2018-07-06 09:00 | NUR ---
Clinical Study Manager in to see patient. No new needs or request at this time. He denies any home needs. When medically stable he will be discharged to home.
--- NOTE | 2018-07-06 09:53 | NUR ---
Dr. Dr. Hernandez notified of wound care recommendations.
--- NOTE | 2018-07-06 11:48 | NUR ---
SPOKE TO DR. GASCA. PER HIM PLATELES TO BE GIVEN NOW. PLATELETS STARTED AT THIS TIME, PT UNDERSTANDS AND HAS NO QUESTIONS AT THIS TIME. PT WILL BE GOING TO [facility]
--- NOTE | 2018-07-06 11:49 | NUR ---
DR. SOTOMAYOR IN TO SEE PATIENT. HE WANTS PATIENT TO HAVE STRESS TEST PRIOR TO DISCHARGE. ORDER TO GIVE POTASSIUM 40MEQ ONCE PATIENT BACK FROM SCOPE
--- NOTE | 2018-07-06 12:13 | NUR ---
IV IN RIGHT AC LEAKING. NEW IV STARTED RIGHT FOREARM #20, GOOD BLOOD RETURN. PLATLETS INFUSING, SENT TO SURGERY VIA BED
--- NOTE | 2018-07-06 14:16 | NUR ---
RETURN FROM SURGERY VIA BED
--- NOTE | 2018-07-06 16:00 | NUR ---
PT LEAVING AMA, PT NOT WILLING TO PHOTOGRAPH WOUNDS, OPTIFOAMS INTACT TO KNEE AND ANKLE
--- NOTE | 2018-07-06 16:01 | NUR ---
PT WANTS TO SIGN SELF OUT AMA, DISCUSS RISKS OF SIGNING SELF OUT. DISCUSS WITH DR. KAPADIA AND DR. TATUM. DR. TATUM IS ON THE UNIT AND WANTS TO TALK TO PATIENT PRIOR TO LEAVING. PT IS AGREEABLE TO WAITING TO TALK TO PHYSICIAN. PT D/C MONITOR SELF
--- NOTE | 2018-07-06 16:13 | NUR ---
DR. TATUM IN TO TALK WITH PATIENT, STILL WANTS TO SIGN SELF OUT AMA. AMA PAPER SIGNED, IV REMOVED RIGHT ARM.
--- NOTE | 2018-07-06 16:15 | NUR ---
PT LEFT AMA. UNDERSTANDS RISKS TO LEAVING. UNDERSTANDS THAT HE NEEDS NEW MEDICATION THAT WAS STARTED HERE. HE STATES HE WILL SEE HIS PHYSICIAN IN THE OFFICE
[2018-07-06] MEDS ORDERED: PROPRANOLOL HCL10 MG PO (17:08)
[2018-07-06] MEDS ORDERED: PROTONIX40 MG PO (17:08)
[2018-07-06] MEDS ORDERED: FEROSUL325 M1 PO (17:08)
--- NOTE | 2018-07-06 17:42 | NUR ---
NOTIFIED DR. KAPADIA RESIDENT THAT ORDER WENT IN FOR DISCHARGE AND PATIENT NEEDED AMA DISCHARGE ENTERED. ORDER PLACED.
== END 2018-07-06 17:42 | disposition left against medical advice (07) | DRG 368 ==
LOC: ED 22:40 → ICCU 23:29 → EDHOLD 23:29 → 5E 23:29 → ICCU 23:39 → 5E 07-05 13:05
PROVIDERS: Emergency Medicine Emergency Medical Services; Family Medicine; Internal Medicine; Internal Medicine Nephrology; ADMIT Internal Medicine
PROC: 30233N1 Transfusion of Nonautologous Red Blood Cells into Peripheral Vein, Percutaneous Approach (ICD-10-PCS; 2018-07-02)
PROC: 0DB78ZX Excision of Stomach, Pylorus, Via Natural or Artificial Opening Endoscopic, Diagnostic (ICD-10-PCS; principal; 2018-07-03)
PROC: 06L38CZ Occlusion of Esophageal Vein with Extraluminal Device, Via Natural or Artificial Opening Endoscopic (ICD-10-PCS; 2018-07-06)
PROC: 30233R1 Transfusion of Nonautologous Platelets into Peripheral Vein, Percutaneous Approach (ICD-10-PCS; 2018-07-06)
DX: I85.01 Esophageal varices with bleeding (principal); I21.A1 Myocardial infarction type 2; E43 Unspecified severe protein-calorie malnutrition; N17.0 Acute kidney failure with tubular necrosis; R65.10 Systemic inflammatory response syndrome (SIRS) of non-infectious origin without acute organ dysfunction; K25.4 Chronic or unspecified gastric ulcer with hemorrhage; K29.71 Gastritis, unspecified, with bleeding; E66.9 Obesity, unspecified; R73.9 Hyperglycemia, unspecified; R60.9 Edema, unspecified; D50.0 Iron deficiency anemia secondary to blood loss (chronic); K76.0 Fatty (change of) liver, not elsewhere classified; Z53.21 Procedure and treatment not carried out due to patient leaving prior to being seen by health care provider; E83.51 Hypocalcemia; E87.6 Hypokalemia; F12.90 Cannabis use, unspecified, uncomplicated; F17.210 Nicotine dependence, cigarettes, uncomplicated; R74.0 Nonspecific elevation of levels of transaminase and lactic acid dehydrogenase [LDH]; K20.9 Esophagitis, unspecified; T39.395A Adverse effect of other nonsteroidal anti-inflammatory drugs [NSAID], initial encounter; Y92.89 Other specified places as the place of occurrence of the external cause; Z68.33 Body mass index [BMI] 33.0-33.9, adult; Z82.49 Family history of ischemic heart disease and other diseases of the circulatory system; Z80.1 Family history of malignant neoplasm of trachea, bronchus and lung; Z80.8 Family history of malignant neoplasm of other organs or systems; Z71.6 Tobacco abuse counseling

== ENCOUNTER 2020-08-15 18:32 | Emergency (ER) | payer OTHER ==
[~2020-08-15] VITALS: Ht 182.8 cm; Wt 113.4 kg
[~2020-08-15 18:32] MED LIST: FEROSUL325 M1 PO; Motrin,Rufen400 MG PO; PROPRANOLOL HCL10 MG PO; PROTONIX40 MG PO
[2020-08-15 18:39] VITALS: BP 194/89
[2020-08-15 19:02] VITALS: BP 183/83
[2020-08-15 19:27] LABS: BASO # 0.1 10*3/uL (0.0-0.1); BASO % 0.8 % (0.0-1.0); EOS # 0.1 10*3/uL (0.0-0.4); EOS % 0.9 % (1.0-4.0); HEMATOCRIT 40.9 % (42.0-52.0); LYMPH # 0.9 10*3/uL (1.3-4.4); LYMPH % 14.4 % (27.0-41.0); MEAN CELL VOLUME 100.2 fl (80.0-94.0); MEAN CORPUSCULAR HGB 34.6 pg (27.0-31.0); MEAN CORPUSCULAR HGB CONC 34.5 g/dl (33.0-37.0); MONO # 0.6 10*3/uL (0.1-1.0); MONO % 9.6 % (3.0-9.0); NEUT # 4.8 10*3/uL (2.3-7.9); PLATELET COUNT AUTOMATED 102 10*3/uL (130-400); RED BLOOD COUNT 4.08 10*6/uL (4.50-5.90); RED CELL DISTRI WIDTH 13.6 % (0-14.5); WHITE BLOOD COUNT 6.5 10*3/uL (4.8-10.8)
[2020-08-15 19:40] VITALS: BP 185/87
[2020-08-15 19:40] LABS: ALBUMIN 3.1 gm/dl (3.1-4.5); ALKALINE PHOSPHATASE 93 U/L (45-117); BUN 24 mg/dl (7-24); CHLORIDE 112 mmol/L (98-107); CREATININE 0.83 mg/dL (0.70-1.30); POTASSIUM 4.3 mmol/L (3.5-5.1); SGOT/AST 51 IU/L (3-35); SGPT/ALT 52 U/L (12-78); SODIUM 144 mmol/L (136-145); TOTAL PROTEIN 7.7 gm/dL (6.4-8.2)
[2020-08-15 19:54] LABS: INTERNATIONAL NORM RATIO 1.3 (2.0-3.5)
[2020-08-15 20:28] VITALS: BP 176/85
[2020-08-15 21:01] VITALS: BP 180/81
[2020-08-15 21:20] VITALS: BP 170/100
== END 2020-08-15 21:32 | disposition short-term general hospital (02) ==
LOC: ED 18:32 → EDHOLD 20:06 → ED 20:06 → ICCU 20:21 → EDHOLD 20:21 → ICCU 20:21 → ED 21:32
PROVIDERS: Emergency Medicine
DX: K92.2 Gastrointestinal hemorrhage, unspecified (principal); I85.00 Esophageal varices without bleeding; F17.200 Nicotine dependence, unspecified, uncomplicated; Z79.899 Other long term (current) drug therapy

== ENCOUNTER 2021-04-14 01:29 | Emergency (ER) | payer OTHER ==
[~2021-04-14] VITALS: Ht 182.8 cm; Wt 115.7 kg
[2021-04-14 03:16] LABS: BASO # 0.1 10*3/uL (0.0-0.1); BASO % 0.8 % (0.0-1.0); EOS # 0.1 10*3/uL (0.0-0.4); EOS % 1.3 % (1.0-4.0); HEMATOCRIT 41.8 % (42.0-52.0); LYMPH # 0.9 10*3/uL (1.3-4.4); LYMPH % 11.7 % (27.0-41.0); MEAN CELL VOLUME 94.6 fl (80.0-94.0); MEAN CORPUSCULAR HGB 32.8 pg (27.0-31.0); MEAN CORPUSCULAR HGB CONC 34.7 g/dl (33.0-37.0); MEAN PLATELET VOLUME 9.8 fl (9.6-12.3); MONO # 0.9 10*3/uL (0.1-1.0); MONO % 10.8 % (3.0-9.0); NEUT # 5.9 10*3/uL (2.3-7.9); NEUT % 75.1 % (47.0-73.0); PLATELET COUNT AUTOMATED 117 10*3/uL (130-400); RED BLOOD COUNT 4.42 10*6/uL (4.50-5.90); RED CELL DISTRI WIDTH 14.7 % (0-14.5); WHITE BLOOD COUNT 7.9 10*3/uL (4.8-10.8)
[2021-04-14 03:26] LABS: INTERNATIONAL NORM RATIO 1.3 (2.0-3.5)
[2021-04-14 03:34] LABS: ALBUMIN 3.1 gm/dl (3.1-4.5); ALKALINE PHOSPHATASE 118 U/L (45-117); BUN 19 mg/dl (7-24); CHLORIDE 110 mmol/L (98-107); CREATININE 0.79 mg/dL (0.70-1.30); POTASSIUM 4.1 mmol/L (3.5-5.1); SGOT/AST 44 IU/L (3-35); SGPT/ALT 40 U/L (12-78); SODIUM 141 mmol/L (136-145)
[2021-04-14] MEDS ORDERED: CARVEDILOL12.5 MG PO (05:48)
[2021-04-14] MEDS ORDERED: PANTOPRAZOLE SO40 MG PO (05:48)
[2021-04-14] MEDS ORDERED: BUDESONIDE-FO10.2 GM INH (05:49)
[2021-04-15 08:46] LABS: BASO # 0.1 10*3/uL (0.0-0.1); BASO % 0.7 % (0.0-1.0); EOS # 0.2 10*3/uL (0.0-0.4); EOS % 2.2 % (1.0-4.0); HEMATOCRIT 41.6 % (42.0-52.0); LYMPH # 1.5 10*3/uL (1.3-4.4); LYMPH % 18.1 % (27.0-41.0); MEAN CORPUSCULAR HGB 32.9 pg (27.0-31.0); MEAN CORPUSCULAR HGB CONC 33.2 g/dl (33.0-37.0); MEAN PLATELET VOLUME 10.1 fl (9.6-12.3); MONO # 0.9 10*3/uL (0.1-1.0); NEUT # 5.6 10*3/uL (2.3-7.9); NEUT % 67.5 % (47.0-73.0); PLATELET COUNT AUTOMATED 145 10*3/uL (130-400); RED CELL DISTRI WIDTH 15.3 % (0-14.5); WHITE BLOOD COUNT 8.3 10*3/uL (4.8-10.8)
== END 2021-04-15 14:49 | disposition short-term general hospital (02) ==
LOC: ED 01:29
PROVIDERS: Emergency Medicine; Student in an Organized Health Care Education/Training Program
DX: K92.2 Gastrointestinal hemorrhage, unspecified (principal); I85.01 Esophageal varices with bleeding; F17.200 Nicotine dependence, unspecified, uncomplicated